=== PATIENT | female | born 1940 | race Caucasian/White ===

== ENCOUNTER 2018-12-14 10:11 | Emergency (ER) | payer MEDICARE, OTHER ==
[~2018-12-14] VITALS: Ht 154.9 cm; Wt 82.7 kg
[~2018-12-14 10:11] MED LIST: ALEN70TA19 PO; AMLO1TAB12 PO; CALC1TAB46 PO; CARV25TA32 PO; EZET10 PO; OMEP-50 PO
[2018-12-14] MEDS ORDERED: VALS160T2 PO (10:28)
[2018-12-14] MEDS ORDERED: COMB5OS OU (10:28)
[2018-12-14] MEDS ORDERED: XALA2.5OS OU (10:28)
[2018-12-14] MEDS ORDERED: RALO60 PO (10:28)
[2018-12-14] MEDS ORDERED: HYDR25TA PO (10:28)
[2018-12-14] MEDS ORDERED: MECL-111 PO (10:28)
[2018-12-14] MEDS ORDERED: LORA10TA7 PO (10:28)
[2018-12-14] MEDS ORDERED: ASPI-556 PO (10:28)
[2018-12-14] MEDS ORDERED: ACETAMINOPHEN 500 MG TABLET PO ONE (11:15)
[2018-12-14 12:45] VITALS: BP 144/74
== END 2018-12-14 12:56 | disposition home or self-care (01) ==
LOC: EMS 10:13
DX: S52.572A Other intraarticular fracture of lower end of left radius, initial encounter for closed fracture (principal); I10 Essential (primary) hypertension; Z79.82 Long term (current) use of aspirin; W19.XXXA Unspecified fall, initial encounter; Y93.89 Activity, other specified; Y92.89 Other specified places as the place of occurrence of the external cause; Y99.8 Other external cause status